=== PATIENT | male | born 1990 | race Caucasian/White ===

== ENCOUNTER 2019-06-26 23:07 | Emergency (ER) | payer MEDICAID ==
[~2019-06-26] VITALS: Ht 175.3 cm; Wt 90.7 kg
[2019-06-26 23:08] VITALS: BP_SYST 149
--- NOTE | 2019-06-26 23:08 | NUR ---
Patient to ER [facility] for evaluation. Side rails up.
--- NOTE | 2019-06-26 23:08 | NUR ---
Patient AOx4, ambulatory, presents to ER in custody of law enforcement in handcuffs for medical clerance prior to booking. Patient states he has hx of seizures and has been noncompliant with meds x 2 days because he ran out of medication. Patient states he has muscle soreness. States no injury.
--- NOTE | 2019-06-26 23:15 | NUR ---
ER MD Vincent at bedside for medical evaluation.
[2019-06-26 23:22] VITALS: BP_SYST 149
--- NOTE | 2019-06-26 23:22 | NUR ---
Patient given written and verbal discharge instructions and verbalizes understanding. ER MD discussed with patient the results and treatment provided. Patient in stable condition. ID arm band removed. No Rx given. Patient educated on pain management and to follow up with PMD. Pain Scale 2/10 tolerable to patient. Opportunity for questions provided and answered.
== END 2019-06-26 23:22 | disposition home or self-care (01) ==
LOC: SED 23:07
DX: R56.9 Unspecified convulsions (principal)
CPT/HCPCS: 99283